=== PATIENT | male | born 1935 | race Caucasian/White ===

== ENCOUNTER → 2017-06-17 | Outpatient (CLI) | payer OTHER | LOC: MRI 09:47 | DX: L89.529 Pressure ulcer of left ankle, unspecified stage (principal) ==

== ENCOUNTER → 2017-06-18 | Outpatient (CLI) | payer OTHER | LOC: HYPER | DX: L89.520 Pressure ulcer of left ankle, unstageable (principal); M62.81 Muscle weakness (generalized); R15.9 Full incontinence of feces; G81.90 Hemiplegia, unspecified affecting unspecified side; E78.5 Hyperlipidemia, unspecified; I48.2 Chronic atrial fibrillation; I11.0 Hypertensive heart disease with heart failure; I50.9 Heart failure, unspecified; K21.9 Gastro-esophageal reflux disease without esophagitis; M19.90 Unspecified osteoarthritis, unspecified site ==